=== PATIENT | female | born 2000 | race Hispanic/Latino ===

== ENCOUNTER 2021-04-17 10:33 | Emergency (ER) | payer OTHER ==
[~2021-04-17] VITALS: Ht 160 cm; Wt 68.2 kg
[2021-04-17] MEDS ORDERED: FENOFIBRATE67 MG (11:18)
[2021-04-17] MEDS ORDERED: TRESIBA FL200 UNIT/1 (11:18)
[2021-04-17] MEDS ORDERED: SYNTHROID100 MCG PO (11:18)
[2021-04-17] MEDS ORDERED: [UNRECOGNIZED DRUG - OTHER] (11:18)
[2021-04-17 13:04] LABS: FREE THYROXINE INDEX 1.4533 (1.4-3.8); THYROID STIMULATING HORMONE 2.057 uIU/mL (0.350-4.940)
== END 2021-04-17 13:20 | disposition home or self-care (01) ==
LOC: FSED 10:50
DX: R60.9 Edema, unspecified (principal); E10.65 Type 1 diabetes mellitus with hyperglycemia; E88.09 Other disorders of plasma-protein metabolism, not elsewhere classified; D64.9 Anemia, unspecified; E78.1 Pure hyperglyceridemia
CPT/HCPCS: 36415; 71046; 80053; 81003; 83880; 84436; 84443; 84479; 85025; 85379; 99283